=== PATIENT | female | born 1940 | race American Indian/Alaskan Native ===

== ENCOUNTER 2020-04-18 23:09 | Inpatient (IN) | payer MEDICARE ==
[2020-04-18] MEDS ORDERED: ASPIRIN 325 MG TAB PO ONE (23:42)
[2020-04-19] MEDS ORDERED: HEPARIN 10,000 UNITS/10 ML VIAL IV ONE (00:02)
--- NOTE | 2020-04-19 00:09 | Emergency Department Report ---
ED Chest Pain HPI - General Chief Complaint: Chest Pain Stated Complaint: CHEST PAIN Time Seen by Provider: 04/18/20 23:59 Source: patient, EMS Mode of arrival: Wheelchair Limitations: No Limitations - History of Present Illness Initial Comments: Patient is 79 years old female with history of coronary artery disease status post 3 stents in [place]. Patient also had history of atrial fibrillation and hypertension and congestive heart failure. Patient brought to the emergency room via EMS from home for evaluation of chest pain that started approximately 8:30 PM this evening. Patient described her chest pain as left- sided, pressure with radiation to the neck. Patient denied any shortness of breath, cough, fever or chills. Patient rated her pain as 7 out of 10. Patient received aspirin 325 mg and also 0.4 mg of nitro by EMS with improvement of her chest pain. retail service technician handed an EKG to me at 11:48 PM. EKG showed inferior STEMI. I immediately contacted Dr. Castellon who is a career orientation teacher on-call. Cardiac cath immediately activated. Patient given heparin bolus. Dr. Castellon also advised to add Plavix 600 mg p.o. I discussed the patient with Dr. Vasquez, he agreed to admit the patient to medical service for further management. - Related Data Home Medications Medication Instructions Recorded Confirmed Last Taken Gabapentin 300 mg PO DAILY 04/19/20 04/19/20 Unknown Pantoprazole [Protonix TAB] 40 mg PO QDAY 04/19/20 04/19/20 Unknown predniSONE [Deltasone] 20 mg PO QDAY 04/19/20 04/19/20 Unknown Previous Rx's Medication Instructions Recorded Last Taken Type Aspirin 325 mg PO QDAY tablet 04/19/20 Unknown Rx AtorvaSTATin [Lipitor] 80 mg PO QHS tablet 04/19/20 Unknown Rx Clopidogrel [Plavix] 75 mg PO QDAY tablet 04/19/20 Unknown Rx Magnesium Hydroxide [Milk of 30 ml PO Q4H PRN oral.liqd 04/19/20 Unknown Rx Magnesia] Metoprolol [Lopressor TAB] 50 mg PO BID tablet 04/19/20 Unknown Rx Nitroglycerin [Nitrostat] 0.4 mg SL Q5M PRN tablet 04/19/20 Unknown Rx lisinopriL [Zestril TAB] 20 mg PO QDAY tablet 04/19/20 Unknown Rx Allergies Allergy/AdvReac Type Severity Reaction Status Date / Time promethazine [From Phenergan] AdvReac Nausea Verified 04/19/20 00:13 Heart Score - HEART Score History: Highly suspicious EKG: Significant ST-depression Age: > 65 Risk factors: > 3 risk factors or hx of atherosclerotic disease Troponin: < normal limit HEART Score: 8 - Critical Actions Critical Actions: >7 pts:50-65% risk of adverse cardiac event. Early invasive measures ED Review of Systems ROS: Stated complaint: CHEST PAIN Other details as noted in HPI Comment: All other systems reviewed and negative Constitutional: denies: chills Respiratory: denies: cough, shortness of breath Cardiovascular: chest pain. denies: palpitations Gastrointestinal: denies: abdominal pain, nausea, vomiting, diarrhea Musculoskeletal: denies: back pain Neurological: denies: headache, weakness, numbness, paresthesias, confusion, abnormal gait ED Past Medical Hx - Past Medical History Previous Medical History?: Yes Hx Hypertension: Yes Hx Heart Attack/AMI: Yes Hx Congestive Heart Failure: Yes Additional medical history: a-fib - Surgical History Past Surgical History?: Yes Hx Coronary Stent: Yes - Medications Home Medications: Home Medications Medication Instructions Recorded Confirmed Last Taken Type Aspirin 325 mg PO QDAY tablet 04/19/20 Unknown Rx AtorvaSTATin [Lipitor] 80 mg PO QHS tablet 04/19/20 Unknown Rx Clopidogrel [Plavix] 75 mg PO QDAY tablet 04/19/20 Unknown Rx Gabapentin 300 mg PO DAILY 04/19/20 04/19/20 Unknown History Magnesium Hydroxide [Milk of 30 ml PO Q4H PRN oral.liqd 04/19/20 Unknown Rx Magnesia] Metoprolol [Lopressor TAB] 50 mg PO BID tablet 04/19/20 Unknown Rx Nitroglycerin [Nitrostat] 0.4 mg SL Q5M PRN tablet 04/19/20 Unknown Rx Pantoprazole [Protonix TAB] 40 mg PO QDAY 04/19/20 04/19/20 Unknown History lisinopriL [Zestril TAB] 20 mg PO QDAY tablet 04/19/20 Unknown Rx predniSONE [Deltasone] 20 mg PO QDAY 04/19/20 04/19/20 Unknown History ED Physical Exam - General Limitations: No Limitations General appearance: alert, in no apparent distress - Head Head exam: Present: atraumatic, normocephalic, normal inspection - Eye Eye exam: Present: normal appearance, PERRL - ENT ENT exam: Present: normal exam, normal orophraynx, mucous membranes moist - Neck Neck exam: Present: normal inspection, full ROM. Absent: tenderness, meningis mus - Respiratory Respiratory exam: Present: normal lung sounds bilaterally - Cardiovascular Cardiovascular Exam: Present: regular rate, normal rhythm, normal heart sounds - GI/Abdominal GI/Abdominal exam: Present: soft, normal bowel sounds. Absent: distended, tenderness, guarding, rigid, organomegaly, mass, bruit, pulsatile mass, hernia - Extremities Exam Extremities exam: Present: normal inspection, full ROM, normal capillary refill - Back Exam Back exam: Present: normal inspection, full ROM. Absent: CVA tenderness (R), CVA tenderness (L) - Neurological Exam Neurological exam: Present: alert, oriented X3, CN II-XII intact, normal gait, reflexes normal - Skin Skin exam: Present: warm, intact, normal color ED Course Vital Signs 04/18/20 04/19/20 04/19/20 23:39 00:05 00:15 Temperature 98.7 F 98.7 F Pulse Rate 67 85 85 Respiratory 16 24 24 Rate Blood Pressure 184/98 204/112 Blood Pressure 204/112 [Left] O2 Sat by Pulse 99 100 100 Oximetry 04/19/20 00:30 Temperature Pulse Rate Respiratory 20 Rate Blood Pressure Blood Pressure [Left] O2 Sat by Pulse Oximetry ED Medical Decision Making - Lab Data Result diagrams: 04/19/20 04:31 04/19/20 04:31 - EKG Data Rate: normal - EKG Data 04/19/20 00:16 EKG showed inferior STEMI. - Medical Decision Making Patient is 79 years old female with history of coronary artery disease status post 3 stents in [place]. Patient also had history of atrial fibrillation and hypertension and congestive heart failure. Patient brought to the emergency room via EMS from home for evaluation of chest pain that started approximately 8:30 PM this evening. Patient described her chest pain as left- sided, pressure with radiation to the neck. Patient denied any shortness of breath, cough, fever or chills. Patient rated her pain as 7 out of 10. Patient received aspirin 325 mg and also 0.4 mg of nitro by EMS with improvement of her chest pain. retail service technician handed an EKG to me at 11:48 PM. EKG showed inferior STEMI. I immediately contacted Dr. Castellon who is a career orientation teacher on-call. Cardiac cath immediately activated. Patient given heparin bolus. Dr. Castellon also advised to add Plavix 600 mg p.o. I discussed the patient with Dr. Vasquez, he agreed to admit the patient to medical service for further management. Critical Care Time: Yes Critical care time in (mins) excluding proc time.: 30 Critical care attestation.: If time is entered above; I have spent that time in minutes in the direct care of this critically ill patient, excluding procedure time. ED Disposition Clinical Impression: STEMI (ST elevation myocardial infarction) Disposition: [id number] OP ADMIT IP TO THIS HOSP Is pt being admited?: Yes Condition: Stable
[2020-04-19] MEDS ORDERED: CLOPIDOGREL 300 MG TAB PO ONE (00:10)
[2020-04-19 00:11] VITALS: BP 204/112
[2020-04-19 00:25] LABS: Basophils % (Auto) 0.7 % (0.0-1.8); Eosinophils # (Auto) 0.1 K/mm3 (0.0-0.4); Eosinophils % (Auto) 2.4 % (0.0-4.3); Hematocrit 34.2 % (30.3-42.9); Hemoglobin 11.1 gm/dl (10.1-14.3); Lymphocytes # (Auto) 1.3 K/mm3 (1.2-5.4); Lymphocytes % (Auto) 20.7 % (13.4-35.0); Mean Corpuscular HGB Conc 33 % (30-34); Mean Corpuscular Volume 93 fl (79-97); Monocytes # (Auto) 0.4 K/mm3 (0.0-0.8); Monocytes % (Auto) 6.5 % (0.0-7.3); Platelet Count 300 K/mm3 (140-440); Red Blood Count 3.69 M/mm3 (3.65-5.03); Red Cell Distribution Width 17.9 % (13.2-15.2)
[2020-04-19] MEDS ORDERED: MORPHINE 2 MG/1 ML INJ ONE (00:28)
[2020-04-19] MEDS ORDERED: MORPHINE 4 MG/1 ML INJ IV ONE (00:30)
[2020-04-19] MEDS ORDERED: LIDOCAINE (2%) 20 MG/1 ML VIAL 20 ML MDV INFILTRATI ONE (00:38)
[2020-04-19] MEDS ORDERED: HEPARIN/NS 5000 UNIT/500ML 1,000 ML IR ONE (00:38)
[2020-04-19] MEDS ORDERED: VERAPAMIL 5 MG/2 ML INJ ONE (00:38)
--- NOTE | 2020-04-19 00:38 | XRay Report ---
CHEST 1 VIEW INDICATION / CLINICAL INFORMATION: Chest Pain. COMPARISON: None available. FINDINGS: SUPPORT DEVICES: None. HEART / MEDIASTINUM: Mild to moderate cardiomegaly. LUNGS / PLEURA: No significant pulmonary or pleural abnormality. No pneumothorax. ADDITIONAL FINDINGS: No significant additional findings. IMPRESSION: Moderate cardiomegaly Signer Name: Shade Schofield MD Signed: 04/19/2020 12:33 AM Workstation Name: [id number]
[2020-04-19 00:39] LABS: INR 1.04 (0.87-1.13)
[2020-04-19] MEDS ORDERED: NITROGLYCERIN SYRINGE 6 ML ONE (00:39)
[2020-04-19 00:40] LABS: Partial Thromboplastin Time 27.5 Sec. (24.2-36.6)
[2020-04-19 00:46] LABS: BUN/Creatinine Ratio 17; Blood Urea Nitrogen 12 mg/dL (7-17); Calcium 9.1 mg/dL (8.4-10.2); Hemolysis Index 0
[2020-04-19] MEDS ORDERED: SODIUM CHLORIDE 0.9% 1000 ML 1,000 ML ONE (00:47)
[2020-04-19] MEDS: HEPARIN 10,000 UNITS/10 ML VIAL ONE ×3 (00:55→01:44)
[2020-04-19] MEDS ORDERED: NITROGLYCERIN DRIP 50 MG/250 ML BOTTLE ONE (01:00)
[2020-04-19] MEDS ORDERED: fentaNYL 100 MCG/2 ML INJ ONE (01:00)
[2020-04-19] MEDS ORDERED: HEPARIN/NS 5000 UNIT/500ML 500 ML IR ONE (01:20)
[2020-04-19] MEDS ORDERED: NITROGLYCERIN 0.4 MG TAB SUBL SL PRN (01:20)
[2020-04-19] MEDS ORDERED: MAGNESIUM HYDROXIDE (MOM) ORAL LIQD UDC PO PRN (01:20)
[2020-04-19] MEDS ORDERED: MORPHINE 2 MG/1 ML INJ IV PRN (01:20)
[2020-04-19] MEDS ORDERED: ATROPINE 0.1% (1 MG/10 ML) CARDIAC SYRINGE ONE (01:24)
[2020-04-19] MEDS ORDERED: ONDANSETRON 4 MG/2 ML INJ ONE ×2 (01:26→01:58)
--- NOTE | 2020-04-19 01:38 | History and Physical Report ---
History of Present Illness Date of examination: 04/19/20 Date of admission: 04/19/2020 Chief complaint: Chest pain History of present illness: 79-year-old female with known history of coronary artery disease with 3 stent placement in the past, hypertension, congestive heart failure and atrial fibrillation presenting to the emergency room today complaining of chest pain. Chest pain was said to have started a few hours prior to reporting to the emergency room. Chest pain was left-sided and felt like pressure radiating towards the neck. She denies any nausea vomiting, no abdominal pain. She denies any shortness of breath, no cough, no fever or chills. On a scale of 10 pain was about 7/10 in severity. She had sublingual nitroglycerin and aspirin prior to reporting to the emergency room with some improvement in her chest pain. Work-up in the emergency room was consistent with acute [place]. Space Operations on- call Dr. Castellon was consulted by the ER physician. Patient subsequently taken to the [facility]. Past History Past Medical History: atrial fib, heart failure, hypertension, hyperlipidemia Past Surgical History: No surgical history, PTCA Social history: denies: no significant social history Family history: denies: no significant family history Medications and Allergies Allergies Allergy/AdvReac Type Severity Reaction Status Date / Time promethazine [From Phenergan] AdvReac Nausea Verified 04/19/20 00:13 Home Medications Medication Instructions Recorded Confirmed Last Taken Type Gabapentin [Neurontin] 300 mg PO DAILY 04/19/20 04/19/20 Unknown History Metoprolol [Lopressor] 25 mg PO BID 04/19/20 04/19/20 Unknown History Ondansetron [Zofran Odt] 4 mg PO Q8HR 04/19/20 04/19/20 Unknown History Pantoprazole [Protonix] 40 mg PO QDAY 04/19/20 04/19/20 Unknown History Simvastatin 40 mg PO DAILY 04/19/20 04/19/20 Unknown History Warfarin [Coumadin] 3 mg PO QDAY 04/19/20 04/19/20 Unknown History predniSONE [Deltasone] 20 mg PO QDAY 04/19/20 04/19/20 Unknown History Review of Systems Constitutional: no fever, no chills Ears, nose, mouth and throat: no nasal congestion, no sore throat Cardiovascular: chest pain, no palpitations Respiratory: no cough, no shortness of breath Gastrointestinal: no abdominal pain, no nausea, no vomiting, no diarrhea Genitourinary Female: pelvic pain, no flank pain, no dysuria, no hematuria Musculoskeletal: no neck pain, no low back pain Integumentary: no rash, no pruritis Neurological: no headaches, no confusion Psychiatric: no anxiety, no depression Exam - Constitutional Vitals: Temp Pulse Resp BP Pulse Ox 98.7 F 85 20 204/112 100 04/19/20 00:15 04/19/20 00:15 04/19/20 00:30 04/19/20 00:15 04/19/20 00:15 General appearance: Present: no acute distress, well-nourished - EENT Eyes: Present: EOM intact ENT: hearing intact, clear oral mucosa, dentition normal - Neck Neck: Present: supple, normal ROM - Respiratory Respiratory effort: normal Respiratory: bilateral: CTA - Cardiovascular Rhythm: regular Heart Sounds: Present: S1 & S2, systolic murmur. Absent: gallop, diastolic murmur, rub - Extremities Extremities: no ischemia, pulses intact, pulses symmetrical, No edema, Full ROM Peripheral Pulses: within normal limits - Abdominal General gastrointestinal: Present: soft, non-tender, non-distended, normal bowel sounds - Integumentary Integumentary: Present: clear, warm, dry. Absent: rash - Musculoskeletal Musculoskeletal: strength equal bilaterally - Psychiatric Psychiatric: appropriate mood/affect, intact judgment & insight, memory intact, cooperative - Neurologic Neurologic: CNII-XII intact, moves all extremities HEART Score - HEART Score EKG: Significant ST-depression Age: > 65 Risk factors: > 3 risk factors or hx of atherosclerotic disease Troponin: Troponin T < 0.010 ng/mL (0.00-0.029) 04/18/20 23:58 Troponin: < normal limit - Critical Actions Critical Actions: >7 pts:50-65% risk of adverse cardiac event. Early invasive measures Results - Labs CBC & Chem 7: 04/19/20 04:31 04/18/20 23:58 Labs: Abnormal lab results 04/18/20 04/18/20 Range/Units 23:58 23:58 RDW 17.9 H (13.2-15.2) % Potassium 3.2 L (3.6-5.0) mmol/L Glucose 199 H (65-100) mg/dL Assessment and Plan - Patient Problems (1) STEMI (ST elevation myocardial infarction) Current Visit: No Status: Acute Plan to address problem: Patient taken to [facility] for cardiac catheterization. Currently on anticoagulation and and nitroglycerin. Patient being closely followed by our cardiology team. Final report of cardiac catheterization and further recommendation being awaited. (2) DVT prophylaxis Current Visit: No Status: Acute Plan to address problem: Patient currently on anticoagulation. (3) Full code status Current Visit: No Status: Acute
--- NOTE | 2020-04-19 01:58 | Progress Note ---
Assessment and Plan see consult and cath report (dictated) Objective Vital Signs Temp Pulse Resp BP BP Pulse Ox 04/19/20 00:30 20 04/19/20 00:15 98.7 F 85 24 204/112 100 04/19/20 00:05 85 24 204/112 100 04/18/20 23:39 98.7 F 67 16 184/98 99 - Labs and Meds Coagulation 04/19/20 Range/Units 00:04 PT 13.8 (12.2-14.9) Sec. INR 1.04 (0.87-1.13) APTT 27.5 (24.2-36.6) Sec. CBC 04/18/20 Range/Units 23:58 WBC 6.2 (4.5-11.0) K/mm3 RBC 3.69 (3.65-5.03) M/mm3 Hgb 11.1 (10.1-14.3) gm/dl Hct 34.2 (30.3-42.9) % Plt Count 300 (140-440) K/mm3 Lymph # 1.3 (1.2-5.4) K/mm3 [place] # 0.4 (0.0-0.8) K/mm3 Eos # 0.1 (0.0-0.4) K/mm3 Baso # 0.0 (0.0-0.1) K/mm3 Comprehensive Metabolic Panel 04/18/20 Range/Units 23:58 Sodium 142 (137-145) mmol/L Potassium 3.2 L (3.6-5.0) mmol/L Chloride 104.0 (98-107) mmol/L Carbon Dioxide 26 (22-30) mmol/L BUN 12 (7-17) mg/dL Creatinine 0.7 (0.7-1.2) mg/dL Glucose 199 H (65-100) mg/dL Calcium 9.1 (8.4-10.2) mg/dL
[2020-04-19] MEDS ORDERED: HEPARIN/ 0.45% NACL DRIP 25,000 UNIT/500 ML BAG ONE (02:58)
[2020-04-19] MEDS ORDERED: NITROGLYCERIN DRIP 50 MG/250 ML BOTTLE IV SCH (04:00)
[2020-04-19] MEDS ORDERED: HEPARIN/ 0.45% NACL DRIP 25,000 UNIT/500 ML BAG IV SCH (04:00)
[2020-04-19] MEDS ORDERED: MORPHINE 2 MG/1 ML INJ IV ONE (04:23)
[2020-04-19] MEDS: POTASSIUM CHLORIDE 10 MEQ 10 MEQ/100 ML BAG IV SCH ×2 (04:58→06:47)
[2020-04-19 05:41] LABS: Basophils % (Auto) 0.4 % (0.0-1.8); Eosinophils % (Auto) 0.2 % (0.0-4.3); Hematocrit 30.1 % (30.3-42.9); Hemoglobin 9.9 gm/dl (10.1-14.3); Lymphocytes # (Auto) 0.7 K/mm3 (1.2-5.4); Mean Corpuscular HGB Conc 33 % (30-34); Mean Corpuscular Volume 92 fl (79-97); Monocytes # (Auto) 0.3 K/mm3 (0.0-0.8); Monocytes % (Auto) 5.5 % (0.0-7.3); Platelet Count 262 K/mm3 (140-440); Red Blood Count 3.28 M/mm3 (3.65-5.03); Red Cell Distribution Width 17.3 % (13.2-15.2)
[2020-04-19 05:51] LABS: INR 1.19 (0.87-1.13)
[2020-04-19 06:36] LABS: Partial Thromboplastin Time > 240.0 Sec. (24.2-36.6)
[2020-04-19] MEDS ORDERED: ONDANSETRON 4 MG/2 ML INJ IV PRN (07:35)
[2020-04-19] MEDS ORDERED: POTASSIUM CHLORIDE 10 MEQ 10 MEQ/100 ML BAG IV ONE (08:00)
[2020-04-19 08:08] LABS: BUN/Creatinine Ratio 18; Blood Urea Nitrogen 11 mg/dL (7-17); Calcium 8.8 mg/dL (8.4-10.2); Hemolysis Index 6
[2020-04-19 08:57] LABS: Chol/HDL Ratio 2.58 %
[2020-04-19] MEDS ORDERED: ASPIRIN 325 MG TAB ONE (10:33)
[2020-04-19] MEDS ORDERED: CLOPIDOGREL 75 MG TAB ONE (10:33)
--- NOTE | 2020-04-19 12:36 | Cardiac Catherization Report ---
REFERRING PHYSICIAN: ER physician. INDICATION FOR PROCEDURE: The patient is a pleasant 79-year-old -[place] female with history of coronary artery disease, hypertension, who presents with 3 hours of chest pain to the emergency room and found to have diffuse Q-waves throughout inferior ST elevation active chest pain. STEMI protocol was initiated. The patient loaded with aspirin and Plavix, heparin, supposedly was on Coumadin. INR was found to be normal. The patient is referred for emergent left heart catheterization. Risks, benefits, potential alternatives explained at length prior to obtaining informed consent. PROCEDURE IN DETAIL: The patient was brought to catheterization lab in a postoperative state, prepped and draped in sterile fashion. Wagner's test in right hand was normal. A 2 mL of 2% lidocaine used to anesthetize the right wrist. A standard 5-Albanian hydrophilic sheath used to cannulate the right radial artery via modified Seldinger technique. All exchanges performed to exchange a J-tip guidewire. JL3.5 catheter used to engage the left main. No dampening or ventricularization. Cineangiography performed in multiple projections. JR4 catheter used to cross the aortic valve under fluoroscopic guidance. Left ventriculography performed in 30 CRUZ and 30 SINHALA projections via hand injections, catheter flushed. Manual pullback performed with continuous pressure monitoring. Catheter used to engage the right coronary. No dampening or ventricularization. Cineangiography performed in all projections. DATA: The patient is in atrial fibrillation with controlled ventricular response. Aortic pressure is 170/100, LV pressure is 170. LVP of 20 mmHg. Left ventriculography reveals normal systolic performance with estimated ejection fraction of 55-60%. No evidence of aortic stenosis. CORONARY ANATOMY: This is a codominant system. Left main without significant disease, the coronary tree is calcified. Left main without significant disease, bifurcates left anterior descending and left circumflex. Left circumflex, moderate sized vessel, courses AV groove. No significant disease. LAD is a moderate sized vessel, courses anterior intergroove, wraps around the apex. There is disease in the very small periapical LAD, CELESTINA 1 flow, but it is a small vessel and very distal. Right coronary with severe diffuse disease noted. It is very small vessel, likely 2.0 vessel or so. There is 80% proximal stenosis and there is a 95% stenosis in the mid to distal right coronary. This may be culprit. At this point, we attempted PCI. No torque right guide used. We used multiple wires, we double wired then she was able to place a 1.5 balloon dilated at 6 LANDY for 20 seconds, but were not able to deliver stent. CELESTINA 3 flow remained heavily calcified. The patient is chest pain free. No dissection, no complications. Procedure was stopped here. The patient will be transferred for Rotablator of the right coronary. The patient is clinically stable, entirely pain free at this point. I believe the LAD lesion is chronic. CONCLUSIONS: 1. Severe multivessel coronary artery disease, subtotal occlusion of distal LAD with CELESTINA 1 flow, likely chronic; stents noted in the proximal LAD are patent. Nonobstructive disease in the left circumflex. Right coronary is a small vessel, diffusely diseased with a 90% stenosis in the distal mid segment. Status post PTCA still with a 50% stenosis, CELESTINA 3 flow. 2. Preserved LV function, estimated ejection fraction of 55-60%. 3. No evidence of aortic stenosis. 4. Hypertension. The patient will be started on IV heparin with standard radial care and aspirin and Plavix. Continue IV heparin, transfer tomorrow for Rotablator of right coronary. The patient is clinically stable, chest pain free, aggressive management. Continue aggressive care. JOB# [id number] SBM/NTS
--- NOTE | 2020-04-19 13:35 | Progress Note ---
Assessment and Plan Currently stable cardiac status. Pt is awaiting tx to [facility] where Dr. Cooper has agreed to accept for high-risk PCI. Cont present cardiac management, including ASA 325, plavix, heparin gtt, lopressor, lipitor, lisinopril. Await echo. The patient has been seen in conjunction with Dr. Joel Castellon who agrees with the assessment and plan of care. - Patient Problems (1) STEMI (ST elevation myocardial infarction) Current Visit: Yes Status: Acute (2) CAD (coronary artery disease) Current Visit: Yes Status: Chronic (3) Atrial fibrillation Current Visit: Yes Status: Chronic (4) Accelerated hypertension Current Visit: Yes Status: Acute Subjective Date of service: 04/19/20 Principal diagnosis: STEMI Interval history: pt resting in bed, no chest pain, c/o nausea. Objective Last Vital Signs Temp 97.6 F 04/19/20 08:27 Pulse 85 04/19/20 00:15 Resp 14 04/19/20 04:13 BP 204/112 04/19/20 00:15 Pulse Ox 100 04/19/20 00:15 - Physical Examination General: No Apparent Distress HEENT: Positive: PERRL, Normocephaly, Mucus Membranes Moist Neck: Positive: neck supple, trachea midline Cardiac: Positive: irregularly irregular, S1/S2 Lungs: Positive: clear to auscultation Neuro: Positive: Grossly Intact Abdomen: Negative: Tender Skin: Negative: Rash Musculoskeletal: No Pain Extremities: Absent: edema - Labs and Meds Coagulation 04/19/20 04/19/20 Range/Units 00:04 04:31 PT 13.8 15.4 H (12.2-14.9) Sec. INR 1.04 1.19 H (0.87-1.13) APTT 27.5 > 240.0 H* (24.2-36.6) Sec. Lipids 04/19/20 Range/Units 07:46 Triglycerides 40 (2-149) mg/dL Cholesterol 111 (50-199) mg/dL HDL Cholesterol 43 (40-59) mg/dL Cholesterol/HDL Ratio 2.58 % CBC 04/18/20 04/19/20 Range/Units 23:58 04:31 WBC 6.2 5.9 (4.5-11.0) K/mm3 RBC 3.69 3.28 L (3.65-5.03) M/mm3 Hgb 11.1 9.9 L (10.1-14.3) gm/dl Hct 34.2 30.1 L (30.3-42.9) % Plt Count 300 262 (140-440) K/mm3 Lymph # 1.3 0.7 L (1.2-5.4) K/mm3 [place] # 0.4 0.3 (0.0-0.8) K/mm3 Eos # 0.1 0.0 (0.0-0.4) K/mm3 Baso # 0.0 0.0 (0.0-0.1) K/mm3 Comprehensive Metabolic Panel 04/18/20 04/19/20 Range/Units 23:58 04:31 Sodium 142 142 (137-145) mmol/L Potassium 3.2 L 3.7 (3.6-5.0) mmol/L Chloride 104.0 105.3 (98-107) mmol/L Carbon Dioxide 26 23 (22-30) mmol/L BUN 12 11 (7-17) mg/dL Creatinine 0.7 0.6 L (0.7-1.2) mg/dL Glucose 199 H 101 H (65-100) mg/dL Calcium 9.1 8.8 (8.4-10.2) mg/dL - Imaging and Cardiology EKG: report reviewed, image reviewed Echo: pending Cardiac cath: report reviewed - Telemetry EKG Rhythm: Atrial Fibrillation
[2020-04-19] MEDS ORDERED: CLOPIDOGREL 75 MG TAB PO SCH (14:00)
[2020-04-19] MEDS ORDERED: ASPIRIN 325 MG TAB PO SCH (14:00)
[2020-04-19] MEDS ORDERED: METOPROLOL TARTRATE 50 MG TAB PO SCH (14:00)
--- NOTE | 2020-04-19 14:03 | Consultation ---
History of Present Illness Consult date: 04/19/20 Requesting physician: DANE CALLAHAN Reason for consult: other (STEMI) History of present illness: PULMONARY/CCM CONSULT NOTE (Full dictation # ) Please see dictated notes for full details Past History Past Medical History: atrial fib, heart failure, hypertension, hyperlipidemia Past Surgical History: No surgical history, PTCA Social history: denies: no significant social history Family history: denies: no significant family history Medications and Allergies Allergies Allergy/AdvReac Type Severity Reaction Status Date / Time promethazine [From Phenergan] AdvReac Nausea Verified 04/19/20 00:13 Home Medications Medication Instructions Recorded Confirmed Last Taken Type Gabapentin [Neurontin] 300 mg PO DAILY 04/19/20 04/19/20 Unknown History Metoprolol [Lopressor] 25 mg PO BID 04/19/20 04/19/20 Unknown History Ondansetron [Zofran Odt] 4 mg PO Q8HR 04/19/20 04/19/20 Unknown History Pantoprazole [Protonix] 40 mg PO QDAY 04/19/20 04/19/20 Unknown History Simvastatin 40 mg PO DAILY 04/19/20 04/19/20 Unknown History Warfarin [Coumadin] 3 mg PO QDAY 04/19/20 04/19/20 Unknown History predniSONE [Deltasone] 20 mg PO QDAY 04/19/20 04/19/20 Unknown History Active Meds: Active Medications Aspirin (Aspirin) 325 mg PO QDAY [facility] Atorvastatin Calcium (Lipitor) 80 mg PO QHS DANA Clopidogrel Bisulfate (Plavix) 75 mg PO QDAY [facility] Heparin Sodium/Sodium Chloride (Heparin/ 0.45% Nacl-25,000 Unit/500 Ml) 25,000 unit in 500 mls @ 20 mls/hr IV TITR DANA; Protocol Last Admin: 04/19/20 04:59 Dose: 1,000 units/hr, 20 mls/hr Documented by: Nitroglycerin/Dextrose (Tridil Drip 50mg/250ml) 50 mg in 250 mls @ 3 mls/hr IV TITR DANA; Protocol Last Admin: 04/19/20 04:27 Dose: 45 mcg/min, 13.5 mls/hr Documented by: Lisinopril (Zestril) 20 mg PO QDAY DANA Magnesium Hydroxide (Milk Of Magnesia) 30 ml PO Q4H PRN PRN Reason: Constipation Metoprolol Tartrate (Metoprolol) 50 mg PO BID DANA Morphine Sulfate (Morphine) 2 mg IV Q5MIN PRN PRN Reason: Chest Pain unrelieved by NTG Nitroglycerin (Nitrostat) 0.4 mg SL Q5M PRN PRN Reason: Chest Pain Ondansetron HCl (Zofran) 4 mg IV Q6H PRN PRN Reason: Nausea And Vomiting Last Admin: 04/19/20 07:51 Dose: 4 mg Documented by: Sodium Chloride (Sodium Chloride Flush Syringe 10 Ml) 10 ml IV BID DANA Sodium Chloride (Sodium Chloride Flush Syringe 10 Ml) 10 ml IV PRN PRN PRN Reason: LINE FLUSH Physical Examination Vital signs: Vital Signs Temp Pulse Resp BP Pulse Ox 98.7 F 67 16 184/98 99 04/18/20 23:39 04/18/20 23:39 04/18/20 23:39 04/18/20 23:39 04/18/20 23:39 Results - Laboratory Findings CBC and BMP: 04/19/20 04:31 04/19/20 04:31 PT/INR, D-dimer PT 15.4 Sec. (12.2-14.9) H 04/19/20 04:31 INR 1.19 (0.87-1.13) H 04/19/20 04:31 Abnormal lab findings: Abnormal Labs 04/18/20 04/18/20 04/19/20 23:58 23:58 04:31 RBC Hgb Hct RDW 17.9 H Lymph % (Auto) Lymph # Seg Neutrophils % PT INR APTT Potassium 3.2 L Creatinine Glucose 199 H Troponin T 0.095 H 04/19/20 04/19/20 04/19/20 04:31 04:31 04:31 RBC 3.28 L Hgb 9.9 L Hct 30.1 L RDW 17.3 H Lymph % (Auto) 12.0 L Lymph # 0.7 L Seg Neutrophils % 81.9 H PT 15.4 H INR 1.19 H APTT > 240.0 H* Potassium Creatinine 0.6 L Glucose 101 H Troponin T 04/19/20 07:46 RBC Hgb Hct RDW Lymph % (Auto) Lymph # Seg Neutrophils % PT INR APTT Potassium Creatinine Glucose Troponin T 0.212 H* D
--- NOTE | 2020-04-19 14:54 | Progress Note ---
Assessment and Plan Assessment and plan: (1) STEMI (ST elevation myocardial infarction) Current Visit: Yes Status: Acute (2) CAD (coronary artery disease) Current Visit: Yes Status: Chronic (3) Atrial fibrillation Current Visit: Yes Status: Chronic (4) Accelerated hypertension Current Visit: Yes Status: Acute 04/19/20. Currently stable cardiac status. Pt is awaiting tx to [place] where Dr. Cooper has agreed to accept for high-risk PCI. Cont present cardiac management, including ASA 325, plavix, heparin gtt, lopressor, lipitor, lisinopril. Await echo. History Interval history: No new issues Hospitalist Physical - Constitutional Vitals: Temp Pulse Resp BP Pulse Ox 97.6 F 85 14 204/112 100 04/19/20 08:27 04/19/20 00:15 04/19/20 04:13 04/19/20 00:15 04/19/20 00:15 General appearance: Present: no acute distress, well-nourished - EENT Eyes: Present: PERRL, EOM intact ENT: hearing intact, clear oral mucosa, dentition normal - Neck Neck: Present: supple, normal ROM - Respiratory Respiratory effort: normal Respiratory: bilateral: CTA - Cardiovascular Rhythm: regular Heart Sounds: Present: S1 & S2. Absent: gallop, rub - Extremities Extremities: no ischemia, No edema, Full ROM - Abdominal General gastrointestinal: soft, non-tender, non-distended, normal bowel sounds - Integumentary Integumentary: Present: clear, warm, dry - Neurologic Neurologic: CNII-XII intact, moves all extremities HEART Score - HEART Score EKG: Significant ST-depression Age: > 65 Risk factors: > 3 risk factors or hx of atherosclerotic disease Troponin: Troponin T 0.212 ng/mL (0.00-0.029) H* D 04/19/20 07:46 Troponin: < normal limit - Critical Actions Critical Actions: >7 pts:50-65% risk of adverse cardiac event. Early invasive measures Results - Labs CBC & Chem 7: 04/19/20 04:31 04/19/20 04:31 Labs: Laboratory Last Values WBC 5.9 K/mm3 (4.5-11.0) 04/19/20 04:31 RBC 3.28 M/mm3 (3.65-5.03) L 04/19/20 04:31 Hgb 9.9 gm/dl (10.1-14.3) L 04/19/20 04:31 Hct 30.1 % (30.3-42.9) L 04/19/20 04:31 MCV 92 fl (79-97) 04/19/20 04:31 MCH 30 pg (28-32) 04/19/20 04:31 MCHC 33 % (30-34) 04/19/20 04:31 RDW 17.3 % (13.2-15.2) H 04/19/20 04:31 Plt Count 262 K/mm3 (140-440) 04/19/20 04:31 Lymph % (Auto) 12.0 % (13.4-35.0) L 04/19/20 04:31 [place] % (Auto) 5.5 % (0.0-7.3) 04/19/20 04:31 Eos % (Auto) 0.2 % (0.0-4.3) 04/19/20 04:31 Baso % (Auto) 0.4 % (0.0-1.8) 04/19/20 04:31 Lymph # 0.7 K/mm3 (1.2-5.4) L 04/19/20 04:31 [place] # 0.3 K/mm3 (0.0-0.8) 04/19/20 04:31 Eos # 0.0 K/mm3 (0.0-0.4) 04/19/20 04:31 Baso # 0.0 K/mm3 (0.0-0.1) 04/19/20 04:31 Seg Neutrophils % 81.9 % (40.0-70.0) H 04/19/20 04:31 Seg Neutrophils # 4.8 K/mm3 (1.8-7.7) 04/19/20 04:31 PT 15.4 Sec. (12.2-14.9) H 04/19/20 04:31 INR 1.19 (0.87-1.13) H 04/19/20 04:31 APTT > 240.0 Sec. (24.2-36.6) H* 04/19/20 04:31 Activated Clotting Time 197 (74-137) H 04/19/20 01:51 Sodium 142 mmol/L (137-145) 04/19/20 04:31 Potassium 3.7 mmol/L (3.6-5.0) 04/19/20 04:31 Chloride 105.3 mmol/L (98-107) 04/19/20 04:31 Carbon Dioxide 23 mmol/L (22-30) 04/19/20 04:31 Anion Gap 17 mmol/L 04/19/20 04:31 BUN 11 mg/dL (7-17) 04/19/20 04:31 Creatinine 0.6 mg/dL (0.7-1.2) L 04/19/20 04:31 Estimated GFR > 60 ml/min 04/19/20 04:31 BUN/Creatinine Ratio 18 % 04/19/20 04:31 Glucose 101 mg/dL (65-100) H 04/19/20 04:31 Calcium 8.8 mg/dL (8.4-10.2) 04/19/20 04:31 Troponin T 0.212 ng/mL (0.00-0.029) H* D 04/19/20 07:46 Triglycerides 40 mg/dL (2-149) 04/19/20 07:46 Cholesterol 111 mg/dL (50-199) 04/19/20 07:46 LDL Cholesterol Direct 70 mg/dL (50-130) 04/19/20 07:46 HDL Cholesterol 43 mg/dL (40-59) 04/19/20 07:46 Cholesterol/HDL Ratio 2.58 % 04/19/20 07:46 Blood Type O POSITIVE 04/18/20 23:59 Antibody Screen Negative 04/18/20 23:59 [place]/IV: IV Catheter Type [Right INT / Saline Lock Forearm] IV Catheter Type [Left Forearm INT / Saline Lock ] Active Medications - Current Medications Current Medications: Generic Name Dose Route Start Last Admin Trade Name Freq PRN Reason Stop Dose Admin Aspirin 325 mg 04/19/20 14:00 Aspirin PO QDAY [facility] Atorvastatin Calcium 80 mg 04/19/20 22:00 Lipitor PO QHS [facility] Clopidogrel Bisulfate 75 mg 04/19/20 14:00 Plavix PO QDAY [facility] Heparin Sodium/Sodium Chloride 25,000 unit in 500 mls @ 20 mls/hr 04/19/20 04:00 04/19/20 04:59 Heparin/ 0.45% Nacl-25,000 Unit/500 Ml IV 1,000 units/hr TITR DANA 20 mls/hr Administration Protocol 1,000 UNITS/HR Nitroglycerin/Dextrose 50 mg in 250 mls @ 3 mls/hr 04/19/20 04:00 04/19/20 04:27 Tridil Drip 50mg/250ml IV 45 mcg/min TITR DANA 13.5 mls/hr Administration Protocol 10 MCG/MIN Lisinopril 20 mg 04/20/20 10:00 Zestril PO QDAY DANA Magnesium Hydroxide 30 ml 04/19/20 01:20 Milk Of Magnesia PO Q4H PRN Constipation Metoprolol Tartrate 50 mg 04/19/20 14:00 Metoprolol PO BID DANA Morphine Sulfate 2 mg 04/19/20 01:20 Morphine IV Q5MIN PRN Chest Pain unrelieved by NTG Nitroglycerin 0.4 mg 04/19/20 01:20 Nitrostat SL Q5M PRN Chest Pain Ondansetron HCl 4 mg 04/19/20 07:35 04/19/20 07:51 Zofran IV 4 mg Q6H PRN Administration Nausea And Vomiting Sodium Chloride 10 ml 04/19/20 10:00 04/19/20 10:50 Sodium Chloride Flush Syringe 10 Ml IV 10 ml BID DANA Administration Sodium Chloride 10 ml 04/19/20 01:20 Sodium Chloride Flush Syringe 10 Ml IV PRN PRN LINE FLUSH Nutrition/Malnutrition Assess - Dietary Evaluation Nutrition/Malnutrition Findings: Nutrition Notes Start: 04/19/20 09:06 Freq: Status: Active Protocol: Document 04/19/20 09:06 LM (Rec: 04/19/20 09:08 LM [id number]) Nutrition Notes Need for Assessment generated from: MD Order Initial or Follow up Brief Note Current Diagnosis Hypertension,Heart Failure, Hyperlipidemia Other Pertinent Diagnosis afib Current Diet NPO Height 5 ft 6 in Weight 66.6 kg [place] Body Weight (kg) 59.09 BMI 23.7 Weight Status Appropriate Subjective/Other Information MD consult for diet education. Pt in cathlab for procedure. Nutrition Intervention Follow-Up By: 04/20/20 Additional Comments F/U for diet education
--- NOTE | 2020-04-19 15:01 | Discharge Summary ---
Providers - Providers Date of Admission: 04/19/20 03:09 Date of discharge: 04/19/20 Attending physician: MARIA SHARIF 04/19/20 Consult to Cardiac Rehabilitation [CONS] Routine Reason For Exam: Phase I 04/19/20 01:21 Consult to Dietitian/Nutrition [CONS] Routine Physician Instructions: Reason For Exam: Reason for Consult: Diet education 04/19/20 01:42 Consult to Physician [CONS] Routine Comment: Consulting Provider: CANDIDO HURD Physician Instructions: Reason For Exam: CHEST PAIN, STEMI S/P STENT PLACEMENT 04/19/20 01:55 Consult to Cardiac Rehabilitation [CONS] Routine Reason For Exam: Cardiac Rehab Evaluation Primary care physician: PROGRAM DIRECTOR/TRAFFIC DIRECTOR Hospitalization Reason for admission: cp Condition: Stable Hospital course: 79 -[place] female with history of coronary artery disease, hypertensionAnd was admitted with ST ADDY. EKG revealed diffuse Q waves throughou t inferior ST elevation.The patient underwent cardiac catheterization That reveals severe multivessel coronary artery disease, Sub total occlusion of distal LADAnd non-obstructive disease of the left circumflex. Right coronary was aSmall vessel that was Diffusely diseased with 90% stenosis. Currently stable cardiac status. Pt is awaiting tx to [place] where Dr. Cooper has agreed to accept for high-risk PCI. Cont present cardiac management, including ASA 325, plavix, heparin gtt, lopressor, lipitor, lisinopril. Await echo. D/C time 35 min Disposition: [id number] ANOTHER TYPE HLTHCARE Time spent for discharge: 35 Core Measure Documentation - Palliative Care Palliative Care/ Comfort Measures: Not Applicable - Core Measures Any of the following diagnoses?: acute MA - Acute MA Discharge Requirements Aspirin at discharge: Yes CE/ARB for LVSD if EF <40%: Yes Beta rosaura at discharge: Yes Statin for LDL = or >100 mg/dl on DC: Yes Exam - Constitutional Vitals: Temp Pulse Resp BP Pulse Ox 97.6 F 85 14 204/112 100 04/19/20 08:27 04/19/20 00:15 04/19/20 04:13 04/19/20 00:15 04/19/20 00:15 General appearance: Present: no acute distress, well-nourished - EENT Eyes: Present: PERRL ENT: hearing intact, clear oral mucosa - Neck Neck: Present: supple, normal ROM - Respiratory Respiratory effort: normal Respiratory: bilateral: CTA - Cardiovascular Heart Sounds: Present: S1 & S2. Absent: rub, click - Extremities Extremities: pulses symmetrical, No edema Peripheral Pulses: within normal limits - Abdominal General gastrointestinal: Present: soft, non-tender, non-distended, normal bowel sounds Female genitourinary: Present: normal - Integumentary Integumentary: Present: clear, warm, dry - Musculoskeletal Musculoskeletal: gait normal, strength equal bilaterally - Psychiatric Psychiatric: appropriate mood/affect, intact judgment & insight - Neurologic Neurologic: CNII-XII intact, moves all extremities Plan Activity: advance as tolerated Weight Bearing Status: Weight Bear as Tolerated Follow up with: PRIMARY CARE, [Primary Care Provider] - 7 Days
[2020-04-20] MEDS ORDERED: LISINOPRIL 20 MG TAB PO SCH (10:00)
== END 2020-04-19 10:00 | disposition short-term general hospital (02) | DRG 282 ==
LOC: ED 23:09 → CC1 04-19 03:09
PROVIDERS: ADMIT Internal Medicine Geriatric Medicine; ATTEND Hospitalist
PROC: 4A023N7 Measurement of Cardiac Sampling and Pressure, Left Heart, Percutaneous Approach (ICD-10-PCS; principal; 2020-04-19)
PROC: B2111ZZ Fluoroscopy of Multiple Coronary Arteries using Low Osmolar Contrast (ICD-10-PCS; 2020-04-19)
PROC: B2151ZZ Fluoroscopy of Left Heart using Low Osmolar Contrast (ICD-10-PCS; 2020-04-19)
DX: I21.3 ST elevation (STEMI) myocardial infarction of unspecified site (principal); I25.10 Atherosclerotic heart disease of native coronary artery without angina pectoris; I48.91 Unspecified atrial fibrillation; I11.0 Hypertensive heart disease with heart failure; I50.9 Heart failure, unspecified; E78.5 Hyperlipidemia, unspecified; Z95.5 Presence of coronary angioplasty implant and graft; I25.2 Old myocardial infarction
CPT/HCPCS: 36415; 71045; 80048; 80061; 84484; 85025; 85347; 85610; 85730; 86850; 86900; 86901; 92920; 93005; 93306; 93458; G0378; C1725; C1769; C1887; C1894; J0461; J1644; J2270; J2405; J3010; J3480; J7030; Q9967